=== PATIENT | female | born 2000 | race Caucasian/White ===

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

== ENCOUNTER → 2022-11-23 11:20 | Outpatient (CLI) | payer BC, MEDICAID, SELFPAY ==
--- NOTE | ~2022-11-23 | XR_ITS ---
XR wrist RT min 3V DATE: 11/23/2022 12:05 INDICATION: Right wrist pain TECHNIQUE: 4 views COMPARISON: None FINDINGS: No fracture or dislocation, periosteal reaction or bone destruction is detected. Joint spa giorgi are preserved. No erosive change or chondrocalcinosis. IMPRESSION: Negative Reviewed, dictated and finalized at location B. IMPRESSION: Negative
== END ==
PROVIDERS: PCP Physician Assistant; Visit Provider Physician Assistant
DX: M25.531 Pain in right wrist (principal)
CPT/HCPCS: 73110

== ENCOUNTER 2023-10-31 16:56 | Emergency (ER) | payer BC, SELFPAY ==
--- NOTE | 2023-10-31 17:01 | ED.EAR ---
HPI - Ear Problem General Chief complaint: Ear Stated complaint: Earache Time Seen by Provider: 10/31/23 17:01 Source: patient Mode of arrival: ambulatory Limitations: no limitations History of Present Illness HPI Narrative: Patient is a 23-year-old male who presents with bilateral ear pain that started yesterday. Patient had mild congestion and cough starting this week. Patient has been taking ibuprofen for pain. Denies any fever, chills, nausea, vomiting, diarrhea. MD Complaint: ear pain Related Data Home Medications Medication Instructions Recorded Confirmed doxycycline hyclate 100 mg tablet 100 mg PO DAILY 10/31/23 10/31/23 Allergies Allergy/AdvReac Type Severity Reaction Status Date / Time No Known Allergies Allergy Mild Verified 10/31/23 17:07 Review of Systems Review of Systems: All systems reviewed & are unremarkable except as noted in HPI and below Constitutional: Constitutional: Denies body ache(s), Denies chills, Denies fever(s), Denies headache(s) and Denies malaise Eyes: Eyes: Denies blurry vision, Denies eye discharge and Denies irritation ENT: Reports otalgia, Denies headache(s), Reports nasal congestion, Denies nasal discharge and Denies sore throat Cardiovascular: Cardiovascular: Denies chest pain, Denies edema, Denies palpitations and Denies dyspnea on exertion Respiratory: Respiratory: Reports cough and Denies dyspnea on exertion Gastrointestinal: Gastrointestinal: Denies abdominal pain, Denies diarrhea, Denies nausea and Denies vomiting Musculoskeletal: Musculoskeletal: Denies back pain, Denies arthralgias and Denies muscle weakness Integumentary/Breasts: Skin/Breast: Denies pruritus and Denies rash Neurologic: Denies headache(s) Psychiatric: Psychiatric: Reports no additional psychiatric complaints Endocrine: Endocrine: Denies palpitations PMFSH Family History Family History Father Hypertension Mother Depression Mother Anxiety Sibling Anxiety Social History Social History Smoking status: Never smoker Second hand tobacco smoke exposure: No Substance use: never Gender identity (if verbalized by the patient): Female Spiritual care concerns: No Comments At time of signature, agree with nursing past medical, surgical, social and family history. There is no relevant family history pertinent to the presenting complaint? Exam Const: General: cooperative, healthy appearing, no acute distress and well nourished Nutritional Appearance: well nourished Orientation/consciousness: patient oriented x3 Limitations: no limitations HENMT: Head: normal to inspection, normocephalic and atraumatic Ears: hearing grossly normal bilaterally, EAC's normal, no periauricular adenopathy and TM abnormal erythematous bilateral Face/Nose/Sinus: Normal external nose present, Normal nares present, Normal nasal mucous membranes and turbinates present, No nasal discharge present, normal facial exam and sinuses nontender Face and sinus: normal facial exam and sinuses nontender Mouth: Yes Normal oral and palatal mucosa present, Yes lip normal, Yes tongue normal and Yes moist mucous membranes Throat: posterior oropharynx normal, tonsils normal and uvula midline Eyes: General: appearance normal, both eyes and all related structures Alignment and Position: alignment normal and position normal Eyelids: eyelids normal Pupils: Equal, round and reactive pupils present EOM: EOMs intact bilaterally Neck: Neck: normal visual inspection, full ROM, no lymphadenopathy and supple Chest: Chest palpation & inspection: normal inspection of the chest Resp: Effort & Inspection: normal respiratory effort and able to speak in complete sentences Auscultation: clear to auscultation bilaterally, no crackles, no rales, no rhonchi and no wheezes Cardio: Rate: regular rate Rhythm: regular rhythm Heart s
[2023-10-31 17:04] VITALS: BP 127/76; PULSE 94; RESP 18; TEMP 37.6; O2SAT 100
== END 2023-10-31 17:14 | disposition home or self-care (01) ==
PROVIDERS: Emergency Provider Nurse Practitioner Family; PCP Physician Assistant
DX: H66.003 Acute suppurative otitis media without spontaneous rupture of ear drum, bilateral (principal)
CPT/HCPCS: 99213; G0463

== ENCOUNTER 2023-12-03 10:34 | Outpatient (CLI) | payer BC, SELFPAY ==
--- NOTE | ~2023-12-03 | XR_ITS ---
EXAM: [id number] DATE: 12/03/2023 11:16 HISTORY: Radiculopathy, cervical region . COMPARISON: None available. FINDINGS: Craniocervical association and atlantoaxial joint are aligned. No prevertebral soft tissue swelling. Tilted orientation of C1. Posterior bowing of the odontoid process. Mild degenerative orlando ge at the anterior atlantodental interval. Moderate degenerative change at the articulations of the b ilateral lateral masses of C1 with C2. Vertebral bodies are aligned. Vertebral body heights are maint ained. Normal disc spaces. Normal facets and posterior elements. IMPRESSION: No definite acute fracture or traumatic malalignment detected in the cervical spine. Unusual orientation alignment of C1 and posterior angulation of the tip of the odontoid. These might findings may be normal for this patient or equal opportunity representative of old trauma. Degenerative change at the C1-C2 articulations, greater than expected for age. Recommend MRI of the cervical spine for further evaluation. Reviewed, dictated and finalized at location K. IMPRESSION: No definite acute fracture or traumatic malalignment detected in th e cervical spine. Unusual orientation alignment of C1 and posterior angulation of the tip of the odontoid. These might findings may be normal for this patient or equal opportunity representative of old trauma. Degenerative change at the C1-C2 articulations, greater than expected for age. Recommend MRI of the cervical spine for further evaluation.
--- NOTE | ~2023-12-03 | XR_ITS ---
Right Shoulder Technique: AP and axillary views were obtained. Clinical History: Pain Findings: No fracture or dislocation is seen. Osseous alignment is anatomic. The glenohumeral and acr omioclavicular joint spaces are preserved. Soft tissues are unremarkable. Impression: Unremarkable right shoulder radiographs. Reviewed, dictated and finalized at [facility]. Impression: Unremarkable right shoulder radiographs.
== END 2023-12-03 10:35 ==
LOC: MICIMG 10:36
PROVIDERS: PCP Physician Assistant; Visit Provider Physician Assistant
DX: M25.511 Pain in right shoulder (principal); M54.12 Radiculopathy, cervical region
CPT/HCPCS: 72040; 73030

== ENCOUNTER 2023-12-27 10:10 | Outpatient (CLI) | payer BC, SELFPAY ==
--- NOTE | ~2023-12-27 | MR_ITS ---
MRI of the cervical spine Clinical History: Abnormal findings on diagnostic imaging, paresthesias Technique: Axial T2-weighted and gradient images, and sagittal T1-weighted, T2-weighted, and STIR nathanael ges were acquired. Findings: There is no fracture or subluxation of the cervical spine. There is focal mild reversal of the upper cervical lordosis. No suspicious bone marrow signal reality seen. At C2-C3, there is no disc bulge or herniation. No spinal canal stenosis, cord compression, or neural foraminal narrowing. At C3-C4, there is no significant disc bulge or herniation. No spinal canal stenosis, cord compressio n, or neural foraminal narrowing. At C4-C5, there is no significant disc bulge or herniation. No spinal canal stenosis, cord compressio n, or neural foraminal narrowing. At C5-C6, there is no significant disc bulge or herniation. No spinal canal stenosis, cord compressio n, or neural foraminal narrowing. At C6-C7, there is no significant disc bulge or herniation. No spinal canal stenosis, cord compressio n, or neural foraminal narrowing. No abnormal spinal cord signal seen. Paravertebral soft tissues are unremarkable. Impression: No significant abnormality identified. Reviewed, dictated and finalized at [facility]. Impression: No significant abnormality identified.
== END 2023-12-27 10:11 ==
LOC: MICIMG 10:12
PROVIDERS: PCP Physician Assistant; Visit Provider Physician Assistant
DX: R93.7 Abnormal findings on diagnostic imaging of other parts of musculoskeletal system (principal)
CPT/HCPCS: 72141

== ENCOUNTER 2024-12-16 13:24 | Outpatient (CLI) | payer BC, SELFPAY ==
--- NOTE | ~2024-12-16 | US_ITS ---
US breast LT complete 12/16/2024 13:43 Indication: Palpable area left breast Procedure: High-resolution Limited ultrasound of the left breast Comparison: No prior studies for comparison. Findings: At 9:00, 6 cm from the nipple in the area of palpable concern there is an oval circumscribe d parallel oriented hypoechoic 9 mm mass with minimal internal vascularity and no significant posteri or features, likely benign. No other masses identified. Impression: 1: Probable benign 9 mm left breast mass at 9:00, 6 cm from the nipple. BI-RADS CATEGORY 3-PROBABLY BENIGN FINDING RECOMMENDATION: 6 month follow up Limited left breast ultrasound recommended. Reviewed, dictated and finalized at location A. Impression: 1: Probable benign 9 mm left breast mass at 9:00, 6 cm from the nipple. BI-RADS CATEGORY 3-PROBABLY BENIGN FINDING RECOMMENDATION: 6 month follow up Limited left breast ultrasound recommended.
== END 2024-12-16 13:25 | disposition home or self-care (01) ==
LOC: MICIMG 13:25
PROVIDERS: PCP Physician Assistant; Visit Provider Physician Assistant
DX: N60.02 Solitary cyst of left breast (principal); R92.8 Other abnormal and inconclusive findings on diagnostic imaging of breast
CPT/HCPCS: 76641

== ENCOUNTER 2025-06-23 08:45 | Emergency (ER) | payer OTHER, BC, SELFPAY ==
--- NOTE | 2025-06-23 08:50 | ED_ITS ---
HPI - Ear Problem General Chief complaint: Ear Stated complaint: L Ear Time Seen by Provider: 06/23/25 08:50 Source: patient Mode of arrival: ambulatory Limitations: no limitations History of Present Illness HPI Narrative: Moira is a 25 year old female patient presenting to the clinic today with c/o left ear pain x3 days. She reports she has had cough and congestion for the past 3 weeks. The URI symptoms are improving but over the last 3 days she has noticed some clogging and pain in the left ear. Denies any fevers, chills, body aches. Not taken any medicines recently to treat her symptoms. Related Data Home Medications ?Medication ?Instructions ?Recorded ?Confirmed ?Last Taken ?Type dexmethylphenidate 25 mg mg PO 06/23/25 Unknown Hist ory capsule,extended release [id number] Allergies Allergy/AdvReac Type Severity Reaction Status Date / Time No Known Allergies Allergy Mild Verified 06/23/25 08:49 Review of Systems Review of Systems: Pertinent positives per HPI. Patient denies any fever, chills, rash, headache, visual changes, dizziness, cough, runny nose, sore throat, shortness of breath, chest pain, palpitations, nausea, vomiting, diarrhea, constipation, abdominal pain, or any urinary issues. PMFSH Family History Family History Father Hypertension Mother Depression Mother Anxiety Sibling Anxiety Social History Social History Smoking status: Never smoker Second hand tobacco smoke exposure: No Substance use: never Gender identity (if verbalized by the patient): Female Spiritual care concerns: No Comments At the time of my signature, I reviewed and agree with the nursing past medical, surgical, social, and family history. There is no relevant family history pertinent to the patient complaint. Exam Narrative: General: Well-developed, well nourished, in no apparent distress Head: Normocephalic, atraumatic Eyes: Pupils equally round and reactive to light bilaterally, EOM intact, sclera and conjunctive clear, no discharge, lids normal Ears: Right TMs intact and fluid in noted behind the TM, left TM intact, bulging, red, ear canals clear, no drainage, grossly hearing normal. Nose: Nares patent, no discharge, no inflammation, no sinus tenderness. Mouth: Oropharynx red without lesions or masses, good dentition, MMM. Postnasal drip Neck: Supple, trachea midline, no enlargement of anterior or posterior cervical nodes, no thyroid masses or goiter palpable. Cardio: Regular rate and rhythm, s1 and s2 normal, no murmur appreciated. Resp: Clear to auscultation bilaterally anteriorly and posteriorly, no rhonchi, rales, wheezing or rubs Course Course Emergency Course: Portions of this record may have been created with voice recognition software. Level of Care: Express Care Visit Vital Signs Vital signs: Vital signs reviewed Medical Decision Making MDM Narrative Medical decision making narrative: At the time of visit patient is resting comfortably on the exam table. Patient appears to be nontoxic. C/o left ear pain x3 days. She reports she has had cough and congestion for the past 3 weeks. The URI symptoms are improving but over the last 3 days she has noticed some clogging and pain in the left ear. Denies any fevers, chills, body aches. Not taken any medicines recently to treat her symptoms. On exam patient has bilateral TMs intact, right TM will fluid noted behind the TM, left TM intact, bulging, red, oral pharynx mildly red/postnasal drip, no cervical lymphadenopathy, heart rates regular rate and rhythm, lung sounds are clear. Plan: I suspect patient has left otitis media, right serous otitis. Prescription for amoxicillin and prednisone was sent to the pharmacy. Work note was given for today. Supportive measures were discussed with the patient and they voiced understanding discharge instructions and agrees to treatment plan. Return precautions reviewed Differential Diagnosis Differential Diagnosis: Otitis media, otitis externa, eustachian tube dysfunction, cerumen impaction, upper respiratory infection, serous otitis Discharge Plan Discharge Clinical Impression: Otitis media Qualifiers: Otitis media type: suppurative Chronicity: acute Laterality: left Recurrence: non-recurrent Spontaneous tympanic membrane rupture: without spontaneous rupture Qualified Code(s): H66.002 - Acute suppurative otitis media without spontaneous rupture of ear drum, left ear Acute serous otitis media Qualifiers: Laterality: right Recurrence: non-recurrent Qualified Code(s): H65.01 - Acute serous otitis media, right ear Patient Disposition: Home Condition: Stable Instructions: Antibiotic Form, Ear Infection (ED) Additional Instructions: Take any prescribed medications only as directed-amoxicillin and prednisone Tylenol/motrin as needed for pain May use heating pad to alleviate pain Avoid bottle propping if ear infection in infant. If you get recurrent ear infections it may be warranted to follow up with ENT. Follow up with your PCP in 3-5 days if symptoms persist. Patient Language: Filipino Prescriptions: New prednisone 20 mg tablet 40 mg PO DAILY 5 Days Qty: 10 0RF amoxicillin 875 mg tablet 875 mg PO Q12H 7 Days Qty: 14 0RF No Action dexmethylphenidate 25 mg capsule,ER biphasic 50-50 PO Follow-up/Referrals: Jmi,DAVID Benedict [Primary Care Provider, Unknown] Stand Alone Forms: Work/School Release IP Time of Disposition: 08:59 Quality NIHSS Nursing Documentation ED NIHSS nursing documentation: reviewed/agree
[2025-06-23 08:54] VITALS: BP 117/72; PULSE 87; RESP 18; TEMP 36.4; O2SAT 100
== END 2025-06-23 09:01 | disposition home or self-care (01) ==
PROVIDERS: Emergency Provider Nurse Practitioner Family; PCP Physician Assistant
DX: H66.002 Acute suppurative otitis media without spontaneous rupture of ear drum, left ear (principal); H65.01 Acute serous otitis media, right ear; F90.9 Attention-deficit hyperactivity disorder, unspecified type
CPT/HCPCS: 99213; G0463